=== PATIENT | male | born 1970 | race Caucasian/White ===

== ENCOUNTER 2019-09-13 17:35 | Emergency (ER) | payer BC ==
--- NOTE | 2019-09-13 17:46 | EDM.PDOC ---
ED HPI GENERAL MEDICAL PROBLEM - General Time Seen by Provider: 09/13/19 17:45 Source of Information: Reports: Patient, Family (Patient's ) History Limitations: Reports: Altered Mental Status - History of Present Illness INITIAL COMMENTS - FREE TEXT/NARRATIVE: 48-year-old male who presents via ambulance with altered mental status. 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 He awakened easily when she called his name and seemed to get up easily and she felt that he seemed somewhat strange. She had gotten a call to go check on him because her son had also found that he seemed to be saying strange things and talking unusually and did not seem to be acting normally. The patient's drove him home and he seemed to be less responsive than normal on the way home and seemed to have episodes where he was panicking and even somewhat agitated on the way home. He was saying things that did not really make a lot of sense at times but then other times he seemed to be lucid and coherent. He apparently took a shower when he got home and he went to lay on his bed after the shower I noted that seemed to be shaking all over and was just not responding to her at that time. She called her soon to be son-in-law who is an EMT to come over and check him out and at that time 911 was called and the patient was transported here to the emergency department via ambulance. When he arrives here, he does follow commands but is not verbally responsive except in one or 2 words and he appears to be shaking all over. There is an odor of alcohol on his breath and when I discussed this with the she tells me that for the past year he has been drinking alcohol (something he had not done for the preceding 25 years) and lately (over the last 1-2 months) he seems to be drinking quite heavily. The son who had checked on him at the renovation site noted that there was emesis on the floor and apparently the patient hasn't had several episodes of vomiting while at the job site. The patient really can give me no history at this point. When asked if he has any pain he responds and the negative. He is somewhat warm to touch but he had a normal temperature. He denies chest pain or abdominal pain when asked directly. There is no known history of trauma. There are no other associated signs or symptoms. There are no other modifying factors. Onset: Today (This afternoon. Patient was noted to be normal by the this morning and then she brought him lunch at 11 AM and he was normal at that point. She brought him water to drink at around 2 PM and he seemed to be normal at that point as well. He was found at about 5 PM and the state above.) Duration: Constant Location: Reports: Other Quality: Reports: Other (None known. Patient denies pain.) Improves with: Reports: None Worsens with: Reports: None Context: Reports: Other (As above) Associated Symptoms: Reports: Confusion, Nausea/Vomiting Treatments MANAGER PACKAGE: Reports: Other (see below) (Nothing) - Related Data Allergies Allergy/AdvReac Type Severity Reaction Status Date / Time No Known Allergies Allergy Verified 09/13/19 17:46 Home Meds: Home Meds . [Unable to Verify Home Med List] 09/13/19 [History] Past Medical History Psychiatric History: Reports: Anxiety, Depression - Past Surgical History Other Surgical History Comment: No previous surgeries. 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 ED ROS GENERAL - Review of Systems Review Of Systems: Unable To Obtain (Part of this information that I received below comes from the patient's . The patient could not provide me with any of this information when he arrived.) Reason Not Obtained: Altered mental status Constitutional: Reports: No Symptoms (No known symptoms) HEENT: Reports: No Symptoms (No reported cold type symptoms) Respiratory: Reports: No Symptoms (No reported cough or shortness of breath) GI/Abdominal: Reports: Vomiting (Reported evidence of vomiting at the job site and therefore patient had apparent vomiting this afternoon.) Hematologic/Lymphatic: Reports: No Symptoms - Physical Exam Exam: See Below Exam Limited By: No Limitations General Appearance: Lethargic (But still responds to commands and nods her grunts answering the question.), Moderate Distress, Other (Feels warm to touch.) Eye Exam: Bilateral Eye: EOMI, Normal Inspection (Sclera are anicteric), PERRL (About 3-4 mm and reactive.) Ears: Normal External Exam Nose: Normal Inspection, Normal Mucosa, No Blood Throat/Mouth: Normal Voice, No Airway Compromise, Other (Dry mucous membranes) Head Exam: Atraumatic, Normocephalic Neck: Normal Inspection, Supple, Non-Tender, Full Range of Motion Respiratory/Chest: No Respiratory Distress, Lungs Clear, Normal Breath Sounds, No Accessory Muscle Use Cardiovascular: Normal Peripheral Pulses, Regular Rate, Rhythm, No Gallop, No JVD, No Murmur GI/Abdominal: Normal Bowel Sounds, Soft, Non-Tender, No Mass Neuro Exam (Abbreviated): No Motor/Sensory Deficits (Moves all 4 extremities symmetrically. Keep eyes closed and does not respond verbally in a normal manner. Does answer questions with 1-2 words and will follow commands.), Disoriented, Slow to Respond Back Exam: Normal Inspection Extremities: Normal Inspection, No Pedal Edema, Other (Skin is dry.) Skin Exam: Warm, Dry, Intact, Normal Color, No Rash EKG INTERPRETATION EKG Date: 09/13/19 Time: 17:56 Rhythm: NSR Rate (Beats/Min): 83 [place]: Normal P-Wave: Present QRS: Normal ST-T: Normal QT: Normal Comparison: NA - No Prior EKG (Normal EKG.) Course - Vital Signs Last Recorded V/S: Last Vital Signs Temp 37.0 C 09/13/19 17:40 Pulse 92 09/13/19 17:40 Resp 22 H 09/13/19 17:40 BP 140/86 09/13/19 17:40 Pulse Ox 98 09/13/19 17:40 - Orders/Labs/Meds Orders: Active Orders 24 hr Category Date Time Status EKG Documentation Completion [RC] ASDIRECTED Care 09/13/19 17:59 Active Chest 1V Frontal [CR] Stat Exams 09/13/19 17:57 Taken Head wo Cont [CT] Stat Exams 09/13/19 17:57 Taken CULTURE BLOOD [BC] Urgent Lab 09/13/19 18:13 Received CULTURE BLOOD [BC] Urgent Lab 09/13/19 18:19 Received Sodium Chloride 0.9% [Normal Saline] 1,000 ml Med 09/13/19 19:04 Active IV .BOLUS Sodium Chloride 0.9% [Normal Saline] 1,000 ml Med 09/13/19 18:15 Active IV ASDIRECTED Blood Culture x2 Reflex Set [OM.PC] Urgent Oth 09/13/19 17:57 Ordered EKG 12 Lead [EK] Routine Ther 09/13/19 17:57 Ordered Medication Orders Sodium Chloride (Normal Saline) 1,000 mls @ 125 mls/hr IV ASDIRECTED ALESSANDRA Sodium Chloride (Normal Saline) 1,000 mls @ 999 mls/hr IV .BOLUS ONE Stop: 09/13/19 20:04 Last Admin: 09/13/19 19:00 Dose: 999 mls/hr Documented by: JUAN DANIEL Labs: Laboratory Tests 09/13/19 09/13/19 09/13/19 Range/Units 17:38 18:13 18:13 WBC 7.3 (4.5-12.0) X10-3/uL RBC 5.21 (4.30-5.75) x10(6)uL Hgb 14.7 (13.5-17.8) g/dL Hct 45.5 (30.0-51.3) % MCV 87.4 (80-96) fL MCH 28.2 (27.7-33.6) pg MCHC 32.2 (32.2-35.4) g/dL RDW 13.3 (11.5-15.5) % Plt Count 269 (125-369) X10(3)uL MPV 7.8 (7.4-10.4) fL Neut % (Auto) 76.4 (46-82) % Lymph % (Auto) 17.7 (13-37) % [place] % (Auto) 4.6 (4-12) % Eos % (Auto) 1 (1.0-5.0) % Baso % (Auto) 1 (0-2) % Neut # (Auto) 5.6 (1.6-8.3) # Lymph # (Auto) 1.3 (0.6-5.0) # Mcd[place]ough # (Auto) 0.3 (0.0-1.3) # Eos # (Auto) 0.1 (0.0-0.8) # Baso # (Auto) 0.0 (0.0-0.2) # POC VBG pH 7.38 (7.31-7.41) POC VBG pCO2 36.4 L (41-51) mmHG POC VBG HCO3 21.5 L (23-28) mmol/L POC VBG Total CO2 23 L (24-29) mmol/L POC VBG Base Excess -4 L (-2-3) mmol/L Sodium 143 (135-145) mmol/L Potassium 3.8 (3.5-5.3) mmol/L Chloride 110 (100-110) mmol/L Carbon Dioxide 23 (21-32) mmol/L BUN 11 (7-18) mg/dL Creatinine 1.1 (0.70-1.30) mg/dL Est Cr Clr Drug Dosing TNP Estimated GFR (MDRD) > 60 (>60) BUN/Creatinine Ratio 10.0 (9-20) Glucose 99 (80-116) mg/dL Lactic Acid (0.4-2.0) mmol/L Calcium 8.3 L (8.6-10.2) mg/dL Magnesium 2.1 (1.8-2.5) mg/dL Total Bilirubin 0.3 (0.1-1.3) mg/dL AST 20 (5-25) IU/L ALT 22 (12-36) U/L Alkaline Phosphatase 53 L (56-112) IU/L Troponin I (4.0-60.3) pg/mL C-Reactive Protein (0.5-0.9) mg/dL Total Protein 6.8 (6.0-8.0) g/dL Albumin 3.5 (3.5-5.2) g/dL Globulin 3.3 g/dL Albumin/Globulin Ratio 1.1 Urine Color (YELLOW) Urine Appearance (CLEAR) Urine pH (5.0-6.5) Ur Specific [place] (1.010-1.025) Urine Protein (NEGATIVE) mg/dL Urine Glucose (UA) (NORMAL) mg/dL Urine Ketones (NEGATIVE) mg/dL Urine Occult Blood (NEGATIVE) Urine Nitrite (NEGATIVE) Urine Bilirubin (NEGATIVE) Urine Urobilinogen (NEGATIVE) mg/dL Ur Leukocyte Esterase (NEGATIVE) Urine RBC (0-5) Urine WBC (0-5) Ur Squamous Epith Cells (NS,R,O) Urine Bacteria (NS) Urine Opiates Screen (NEGATIVE) Ur Oxycodone Screen (NEGATIVE) Ur Propoxyphene Screen (NEGATIVE) Ur Barbituates Screen (NEGATIVE) Ur Tricyclics Screen (NEGATIVE) Ur Phencyclidine Scrn (NEGATIVE) Ur Amphetamine Screen (NEGATIVE) Urine MDMA Screen (NEGATIVE) U Benzodiazepines Scrn (NEGATIVE) U Cocaine Metab Screen (NEGATIVE) U Marijuana (THC) Screen (NEGATIVE) Ethyl Alcohol (<0.03) % 09/13/19 09/13/19 09/13/19 Range/Units 18:13 18:13 18:13 WBC (4.5-12.0) X10-3/uL RBC (4.30-5.75) x10(6)uL Hgb (13.5-17.8) g/dL Hct (30.0-51.3) % MCV (80-96) fL MCH (27.7-33.6) pg MCHC (32.2-35.4) g/dL RDW (11.5-15.5) % Plt Count (125-369) X10(3)uL MPV (7.4-10.4) fL Neut % (Auto) (46-82) % Lymph % (Auto) (13-37) % [place] % (Auto) (4-12) % Eos % (Auto) (1.0-5.0) % Baso % (Auto) (0-2) % Neut # (Auto) (1.6-8.3) # Lymph # (Auto) (0.6-5.0) # [place] # (Auto) (0.0-1.3) # Eos # (Auto) (0.0-0.8) # Baso # (Auto) (0.0-0.2) # POC VBG pH 7.38 (7.31-7.41) POC VBG pCO2 36.4 L (41-51) mmHG POC VBG HCO3 21.5 L (23-28) mmol/L POC VBG Total CO2 23 L (24-29) mmol/L POC VBG Base Excess -4 L (-2-3) mmol/L Sodium (135-145) mmol/L Potassium (3.5-5.3) mmol/L Chloride (100-110) mmol/L Carbon Dioxide (21-32) mmol/L BUN (7-18) mg/dL Creatinine (0.70-1.30) mg/dL Est Cr Clr Drug Dosing Estimated GFR (MDRD) (>60) BUN/Creatinine Ratio (9-20) Glucose (80-116) mg/dL Lactic Acid 1.4 (0.4-2.0) mmol/L Calcium (8.6-10.2) mg/dL Magnesium (1.8-2.5) mg/dL Total Bilirubin (0.1-1.3) mg/dL AST (5-25) IU/L ALT (12-36) U/L Alkaline Phosphatase (56-112) IU/L Troponin I 5.4 (4.0-60.3) pg/mL C-Reactive Protein < 0.2 L (0.5-0.9) mg/dL Total Protein (6.0-8.0) g/dL Albumin (3.5-5.2) g/dL Globulin g/dL Albumin/Globulin Ratio Urine Color (YELLOW) Urine Appearance (CLEAR) Urine pH (5.0-6.5) Ur Specific [place] (1.010-1.025) Urine Protein (NEGATIVE) mg/dL Urine Glucose (UA) (NORMAL) mg/dL Urine Ketones (NEGATIVE) mg/dL Urine Occult Blood (NEGATIVE) Urine Nitrite (NEGATIVE) Urine Bilirubin (NEGATIVE) Urine Urobilinogen (NEGATIVE) mg/dL Ur Leukocyte Esterase (NEGATIVE) Urine RBC (0-5) Urine WBC (0-5) Ur Squamous Epith Cells (NS,R,O) Urine Bacteria (NS) Urine Opiates Screen (NEGATIVE) Ur Oxycodone Screen (NEGATIVE) Ur Propoxyphene Screen (NEGATIVE) Ur Barbituates Screen (NEGATIVE) Ur Tricyclics Screen (NEGATIVE) Ur Phencyclidine Scrn (NEGATIVE) Ur Amphetamine Screen (NEGATIVE) Urine MDMA Screen (NEGATIVE) U Benzodiazepines Scrn (NEGATIVE) U Cocaine Metab Screen (NEGATIVE) U Marijuana (THC) Screen (NEGATIVE) Ethyl Alcohol 0.13 H (<0.03) % 09/13/19 09/13/19 Range/Units 19:11 19:11 WBC (4.5-12.0) X10-3/uL RBC (4.30-5.75) x10(6)uL Hgb (13.5-17.8) g/dL Hct (30.0-51.3) % MCV (80-96) fL MCH (27.7-33.6) pg MCHC (32.2-35.4) g/dL RDW (11.5-15.5) % Plt Count (125-369) X10(3)uL MPV (7.4-10.4) fL Neut % (Auto) (46-82) % Lymph % (Auto) (13-37) % [place] % (Auto) (4-12) % Eos % (Auto) (1.0-5.0) % Baso % (Auto) (0-2) % Neut # (Auto) (1.6-8.3) # Lymph # (Auto) (0.6-5.0) # [place] # (Auto) (0.0-1.3) # Eos # (Auto) (0.0-0.8) # Baso # (Auto) (0.0-0.2) # POC VBG pH (7.31-7.41) POC VBG pCO2 (41-51) mmHG POC VBG HCO3 (23-28) mmol/L POC VBG Total CO2 (24-29) mmol/L POC VBG Base Excess (-2-3) mmol/L Sodium (135-145) mmol/L Potassium (3.5-5.3) mmol/L Chloride (100-110) mmol/L Carbon Dioxide (21-32) mmol/L BUN (7-18) mg/dL Creatinine (0.70-1.30) mg/dL Est Cr Clr Drug Dosing Estimated GFR (MDRD) (>60) BUN/Creatinine Ratio (9-20) Glucose (80-116) mg/dL Lactic Acid (0.4-2.0) mmol/L Calcium (8.6-10.2) mg/dL Magnesium (1.8-2.5) mg/dL Total Bilirubin (0.1-1.3) mg/dL AST (5-25) IU/L ALT (12-36) U/L Alkaline Phosphatase (56-112) IU/L Troponin I (4.0-60.3) pg/mL C-Reactive Protein (0.5-0.9) mg/dL Total Protein (6.0-8.0) g/dL Albumin (3.5-5.2) g/dL Globulin g/dL Albumin/Globulin Ratio Urine Color Yellow (YELLOW) Urine Appearance Clear (CLEAR) Urine pH 5.0 (5.0-6.5) Ur Specific [place] 1.015 (1.010-1.025) Urine Protein Negative (NEGATIVE) mg/dL Urine Glucose (UA) Normal (NORMAL) mg/dL Urine Ketones Negative (NEGATIVE) mg/dL Urine Occult Blood Negative (NEGATIVE) Urine Nitrite Negative (NEGATIVE) Urine Bilirubin Negative (NEGATIVE) Urine Urobilinogen Normal (NEGATIVE) mg/dL Ur Leukocyte Esterase Negative (NEGATIVE) Urine RBC Not seen (0-5) Urine WBC 0-5 (0-5) Ur Squamous Epith Cells Few H (NS,R,O) Urine Bacteria Rare H (NS) Urine Opiates Screen Negative (NEGATIVE) Ur Oxycodone Screen Negative (NEGATIVE) Ur Propoxyphene Screen Negative (NEGATIVE) Ur Barbituates Screen Negative (NEGATIVE) Ur Tricyclics Screen Negative (NEGATIVE) Ur Phencyclidine Scrn Negative (NEGATIVE) Ur Amphetamine Screen Negative (NEGATIVE) Urine MDMA Screen Negative (NEGATIVE) U Benzodiazepines Scrn Negative (NEGATIVE) U Cocaine Metab Screen Negative (NEGATIVE) U Marijuana (THC) Screen Negative (NEGATIVE) Ethyl Alcohol (<0.03) % Meds: Medications Generic Name Dose Route Start Last Admin Trade Name Freq PRN Reason Stop Dose Admin Sodium Chloride 1,000 mls @ 125 mls/hr 09/13/19 18:15 Normal Saline IV ASDIRECTED ALESSANDRA Sodium Chloride 1,000 mls @ 999 mls/hr 09/13/19 19:04 09/13/19 19:00 Normal Saline IV 09/13/19 20:04 999 mls/hr .BOLUS ONE Administration Discontinued Medications Generic Name Dose Route Start Last Admin Trade Name Freq PRN Reason Stop Dose Admin Sodium Chloride 1,000 mls @ 999 mls/hr 09/13/19 18:01 09/13/19 17:49 Normal Saline IV 09/13/19 19:01 999 mls/hr .BOLUS ONE Administration Ondansetron HCl 4 mg 09/13/19 18:01 09/13/19 18:22 Zofran IVPUSH 09/13/19 18:02 4 mg ONETIME ONE Administration - Radiology Interpretation Free Text/Narrative:: Portable chest x-ray shows possible scarring in the left lung base but no acute abnormality. CT scan of head showed no acute intracranial abnormality per the radiologist. - Re-Assessments/Exams Free Text/Narrative Re-Assessment/Exam: 09/13/19 19:20: Blood tests are reassuringly normal except for a blood alcohol of 130 mg/dL. He has just provided us with urine. CT scan of his head was normal. The EKG was normal. The patient is much more awake and alert now he is conversing with his and is properly responsive and interactive. He is aware of his surroundings and his situation now. He now states that he does not really remember the events of this afternoon. He is hemodynamically stable with normal O2 saturations and normal pulse and his blood pressure is slightly elevated from arrival but he appears much improved. 09/13/19 19:33: Urine tests are back now and the urine drug was negative. The urinalysis was clear. The patient is essentially back to normal. I feel that this transient alteration in level of responsiveness came about due to some heat exhaustion mixed with alcohol intoxication. I discussed this with the patient and with his family have strongly recommended that he avoid alcohol in the future and that he seek alcohol abuse counseling. He was also cautioned to avoid any heat exposure for the next 3 days. Departure - Departure Time of Disposition: 19:40 Disposition: Home, Self-Care 01 Condition: Good (Improved) Clinical Impression: Dehydration, moderate, Transient alteration of awareness Heat exhaustion Qualifiers: Encounter type: initial encounter Qualified Code(s): T67.5XXA - Heat exhaustion, unspecified, initial encounter Acute alcohol intoxication Qualifiers: Complication of substance-induced condition: with delirium Qualified Code(s): F10.921 - Alcohol use, unspecified with intoxication delirium - Discharge Information Instructions: Heat Exhaustion, Dehydration, Adult, [id number] Referrals: PCP,None [Ordering Only Provider] - Additional Instructions: Your blood tests were reassuringly normal except for your blood alcohol which was elevated at 130 mg/dL. Your EKG was normal. Your chest x-ray showed no acute problem. The CT scan of your head was normal. You appear to have had heat exhaustion and also acute I'll call intoxication. With both of these combined it was a situation where you had an acute delirium that has resolved. I would strongly suggest the you avoid alcohol use in the future and that you seek alcohol counseling. You also should increase your fluid intake. Avoid any heat exposure for the next 3 days. In the future, when working in the heat, make sure the you drink plenty of electrolyte-containing fluids while you are working. Back to the emergency department for tramadol breathing, fever, unrelenting vomiting, chest pain or any other concerning sign or symptom. Sepsis Event Note (ED) - Focused Exam Vital Signs: Vital Signs Temp Pulse Resp BP Pulse Ox 09/13/19 17:40 37.0 C 92 22 H 140/86 98 - My Orders Last 24 Hours: My Active Orders 09/13/19 17:57 Chest 1V Frontal [CR] Stat Head wo Cont [CT] Stat Blood Culture x2 Reflex Set [OM.PC] Urgent EKG 12 Lead [EK] Routine 09/13/19 17:59 EKG Documentation Completion [RC] ASDIRECTED 09/13/19 18:13 CULTURE BLOOD [BC] Urgent 09/13/19 18:15 Sodium Chloride 0.9% [Normal Saline] 1,000 ml IV ASDIRECTED 09/13/19 18:19 CULTURE BLOOD [BC] Urgent 09/13/19 19:04 Sodium Chloride 0.9% [Normal Saline] 1,000 ml IV .BOLUS - Assessment/Plan Last 24 Hours: My Active Orders 09/13/19 17:57 Chest 1V Frontal [CR] Stat Head wo Cont [CT] Stat Blood Culture x2 Reflex Set [OM.PC] Urgent EKG 12 Lead [EK] Routine 09/13/19 17:59 EKG Documentation Completion [RC] ASDIRECTED 09/13/19 18:13 CULTURE BLOOD [BC] Urgent 09/13/19 18:15 Sodium Chloride 0.9% [Normal Saline] 1,000 ml IV ASDIRECTED 09/13/19 18:19 CULTURE BLOOD [BC] Urgent 09/13/19 19:04 Sodium Chloride 0.9% [Normal Saline] 1,000 ml IV .BOLUS
[2019-09-13] MEDS ORDERED: Ondansetron 4 MG/2 ML SDV IVPUSH ONE (18:01)
[2019-09-13] MEDS ORDERED: Sodium Chloride 0.9% 1,000 ML IV ONE ×2 (18:01→19:04)
[2019-09-13] MEDS ORDERED: Sodium Chloride 0.9% 1,000 ML IV SCH (18:15)
--- NOTE | 2019-09-16 11:19 | CR ---
INDICATION: Altered mental status. CHEST ONE VIEW: AP upright portable view of the chest was obtained 09/13/19 - no comparison. The heart is normal in size and shape. There is a linear strand at the left cardiac margin which may represent atelectasis, but more likely fibrosis. A definite active infiltrate or effusion was not identified Overlying EKG leads are noted. IMPRESSION: No acute process. MTDD
== END 2019-09-13 19:56 | disposition home or self-care (01) ==
LOC: FB.ED 17:35
DX: T67.5XXA Heat exhaustion, unspecified, initial encounter (principal); E86.0 Dehydration; R40.4 Transient alteration of awareness; F10.921 Alcohol use, unspecified with intoxication delirium; Y90.6 Blood alcohol level of 120-199 mg/100 ml
CPT/HCPCS: 36415; 70450; 71045; 80053; 80305; 80307; 81001; 82803; 83605; 83735; 84484; 85025; 86140; 87040; 93005; 96361; 96374; 99285; J2405; J7030